=== PATIENT | male | born 1960 ===

== ENCOUNTER → 2021-05-03 | Emergency (ER) | payer OTHER ==
[~2021-05-03] VITALS: Ht 180.3 cm; Wt 99.8 kg
== END | disposition home or self-care (01) ==
LOC: ER 17:27
DX: S86.812A Strain of other muscle(s) and tendon(s) at lower leg level, left leg, initial encounter (principal); X50.0XXA Overexertion from strenuous movement or load, initial encounter; Y92.89 Other specified places as the place of occurrence of the external cause